=== PATIENT | male | born 1950 | race Caucasian/White ===

== ENCOUNTER → 2023-07-09 07:53 | Outpatient (REF) | payer MEDICARE, OTHER, SELFPAY ==
[2023-07-09 08:53] LABS: NT-proBNP 1210 pg/ml
[2023-07-09 08:56] LABS: Glycohemoglobin (HgbA1c) 9.1 % (4.0-5.6)
[2023-07-09 09:01] LABS: ALT (SGPT) 20 U/L (0-50); AST (SGOT) 20 U/L (17-59); Albumin 3.7 g/dl (3.5-5.0); Alkaline Phosphatase 58 U/L (38-126); Blood Urea Nitrogen 48 mg/dl (9-20); Calcium 8.8 mg/dl (8.4-10.2); Carbon Dioxide 20 mmol/L (22-30); Chloride 101 mmol/L (98-107); Glucose 168 mg/dl (70-99); HDL Cholesterol 31 mg/dl; LDL Cholesterol, Calculated 31 mg/dl; Sodium 136 mmol/L (135-145); Total Bilirubin 0.8 mg/dl (0.2-1.3); Total Cholesterol 95 mg/dl (50-199); Total Protein 6.4 g/dl (6.3-8.2); Triglyceride 169 mg/dl (10-149); Very Low Density Lipoprotein 33 mg/dl (0-30); eGFR 45.21
[2023-07-09 10:31] LABS: Microalbumin/creatinine Ratio 30.3 mg/g
== END ==
LOC: REG 07:53
PROVIDERS: ATTENDING PHYSICIAN Nurse Practitioner Family; FAMILY PHYSICIAN Internal Medicine; REFERRING PHYSICIAN Internal Medicine Cardiovascular Disease
DX: E11.9 Type 2 diabetes mellitus without complications (principal); I50.20 Unspecified systolic (congestive) heart failure; I10 Essential (primary) hypertension
CPT/HCPCS: 36415; 80053; 80061; 82043; 82570; 83036; 83735; 83880

== ENCOUNTER 2023-10-07 06:01 | Day surgery (SDC) | payer MEDICARE, OTHER, SELFPAY ==
[2023-09-28 08:28] VITALS: BMI 35.6
[2023-10-07] VITALS (8 sets, daily range): BP systolic 101–138; BP diastolic 58–77; BMI 35.6
[2023-10-07] MEDS: NORMOSOL-R 1000 IV (06:20)
[2023-10-07 06:30] LABS: Glucose - Point of Care 114 mg/dl (70-99)
[2023-10-07] MEDS: CYSVIEW KIT 100 MG INTRAVES (06:34)
[2023-10-07 08:11] LABS: Urine Albumin Negative (Neg - Trace); Urine Bilirubin Negative (Negative); Urine Character Clear (Clear); Urine Color Yellow; Urine Glucose Negative (Negative); Urine Ketone Negative (Negative); Urine Leukocyte Trace (Negative); Urine Nitrite Negative (Negative); Urine Occult Blood Negative (Negative); Urine Urobilinogen Negative (Neg - 1+)
[2023-10-07 08:27] LABS: Urine Red Blood Cell 0-2 /HPF (0-2); Urine White Cell 0-2 /HPF (0-5)
--- NOTE | 2023-10-07 08:40 | SUR.PHASEI ---
Received pt from OR and hooked to monitor, and rhythm showing A-FIB. Dr. Mcdaniels made aware and at bedside, pt more awake and states he has a hx of Afib. No chest pain. No SOB. No EKG ordered. Will continue to monitor
[2023-10-07 08:47] LABS: Glucose - Point of Care 103 mg/dl (70-99)
[2023-10-07] MEDS: Pyridium 200 MG PO (09:16)
== END 2023-10-07 10:23 | disposition home or self-care (01) ==
LOC: SDS 06:01
PROVIDERS: ATTENDING PHYSICIAN Specialist; FAMILY PHYSICIAN Internal Medicine
DX: N30.90 Cystitis, unspecified without hematuria (principal)
CPT/HCPCS: 52204; 88305; 74420; 76000; 81003; 81015; 82962; 88341; 88342; A9589

== ENCOUNTER → 2023-12-02 13:58 | Outpatient (REF) | payer MEDICARE, OTHER, SELFPAY | LOC: RCS 13:58 | PROVIDERS: ATTENDING PHYSICIAN Internal Medicine Cardiovascular Disease; FAMILY PHYSICIAN Internal Medicine | DX: I50.20 Unspecified systolic (congestive) heart failure (principal); I10 Essential (primary) hypertension; I48.0 Paroxysmal atrial fibrillation | CPT/HCPCS: 93306 ==

== ENCOUNTER → 2024-01-04 09:50 | Outpatient (REF) | payer MEDICARE, OTHER, SELFPAY | LOC: RAD 09:50 | PROVIDERS: ATTENDING PHYSICIAN Surgery Vascular Surgery; FAMILY PHYSICIAN Internal Medicine | DX: I73.9 Peripheral vascular disease, unspecified (principal) | CPT/HCPCS: 76770; 93922; 93925 ==

== ENCOUNTER 2024-01-14 12:02 | Emergency (ER) | payer MEDICARE, OTHER, SELFPAY ==
[2024-01-14 12:05] VITALS: BP 117/56
[2024-01-14 14:20] LABS: % Basophils 0.4 % (0-2); % Eosinophils 1.4 % (0-6); % Immature Granulocytes 0.5 % (0-0.5); % Lymphocytes 17.7 % (20.5-51.1); % Monocytes 10.9 % (1.7-9.3); % Neutrophils 69.1 % (42.2-75.2); Absolute Eosinophils 0.1 10^3/uL (0-0.7); Absolute Immature Granulocytes 0.1 10^3/uL (0-0.05); Absolute Lymphocytes 1.7 10^3/uL (1.2-3.4); Absolute Neutrophils 6.5 10^3/uL (1.4-6.5); Hematocrit 45.4 % (39.0-52.0); Hemoglobin 15.6 g/dL (13.0-18.0); Mean Corp Hgb Conc. 34.4 g/dL (33.0-37.0); Mean Corpuscular Hgb 31.5 pg (27.0-31.0); Mean Corpuscular Volume 91.7 fL (80.0-94.0); Nucleated Red Blood Cells % 0 % (-); Platelet Count 192 10^3/uL (130-400); Red Blood Cell Count 4.95 10^6/uL (4.70-6.10); Red Cell Dist. Width 14.4 % (11.5-14.5); White Blood Cell Count 9.4 10^3/uL (4.8-10.8)
--- NOTE | 2024-01-14 15:03 | ED.GENMED ---
History of Present Illness
General
Chief Complaint: Skin Problem
Time Seen by Provider: 01/14/24 13:26
History of Present Illness
History of Present Illness:
74 old male with history of lower extremity peripheral arterial disease presents the emergency department for evaluation of worsening left foot pain over the past 2 weeks. He was seen by his vascular surgeon at the onset of the symptoms and had a
outpatient extremity arterial ultrasound that showed a patent left to right femoral artery bypass with no evidence of stenosis, as well as bilateral inflow disease in both lower extremities and a left popliteal artery occlusion. He was reportedly
ordered to obtain an outpatient CT angiogram of the lower extremities in anticipation of an upcoming appointment in early February. Reports his pain with ambulation is worsening and he is having increased pain at rest. Denies any paresthesias to
the foot. No fevers or chills
Past History
Past History
ED Past Medical History: Asthma, Cancer (Liver cancer), HTN and NIDDM
ED Past Surgical History: Appendectomy, Cholecystectomy, Orthopedic and Other (Liver transplant)
Social History
Tobacco: Former smoker
Alcohol: None
Drug: None
Personal:
Living: with family
Employment: Retired
Family History
Family History: Hypertension
Review of Systems
Review of Systems
Allergies reviewed?: Yes
All Other Systems: ROS reviewed and negative except as documented in HPI and ROS
Phy Exam
Physical Exam
Physical Exam:
GEN: Well appearing, NAD, WDWN
HEENT: Oral mucosa moist, no scleral icterus
Cardiac: Regular rate
Lung: No respiratory distress, no tachypnea
MSK: No gross deformity or injuries. Diffuse edema to bilateral lower extremities, no overt erythema to the left foot or lower extremity. Left dorsalis pedis pulse is faint and monophasic by Doppler and left posterior tibial pulses faint and
biphasic by Doppler, sensation is intact
Skin: Good color, no pallor or jaundice, no rashes
Neuro: AO x3, moves all extremities freely
Psych: Calm, cooperative
Course
Orders/Labs/Results
Orders:
Orders
01/14/24 14:16
Complete Blood Count/With Diff Urgent
01/14/24 14:39
CT Abd Aorta Angio W/ Run Off Urgent
Comment:
Reason For Exam: L foot pain, PAD
01/14/24 16:43
Basic Metabolic Panel Urgent
Abnormal Lab Results
01/14/24 01/14/24
14:16 16:43
MCH 31.5 H pg
(27.0-31.0)
Abs Immat Gran (auto) 0.1 H 10^3/uL
(0-0.05)
Absolute Monos (auto) 1.0 H 10^3/uL
(0.1-0.6)
Lymphocytes % 17.7 L %
(20.5-51.1)
Monocytes % 10.9 H %
(1.7-9.3)
BUN 45 H mg/dl
(9-20)
Creatinine 1.4 H mg/dL
(0.7-1.3)
Glucose 124 H mg/dl
(70-99)
01/14/24 14:16
01/14/24 16:43
Vital Signs
Initial and Last Documented VS:
Initial Vital Signs
Temp Pulse Resp BP Pulse Ox
97.9 F 71 16 117/56 97
01/14/24 12:05 01/14/24 12:05 01/14/24 12:05 01/14/24 12:05 01/14/24 12:05
Last Documented Vital Signs
Temp Pulse Resp BP Pulse Ox
97.9 F 75 16 115/60 98
01/14/24 12:05 01/14/24 16:00 01/14/24 12:05 01/14/24 16:00 01/14/24 16:00
MDM/Problems Addressed
MDM/Problems Addressed:
74-year-old male presents with worsening left foot pain. His pain sounds clinically suggestive of neuropathy given the burning discomfort especially worse with ambulating. CT angiography of the aorta with runoff shows no evidence for new vascular
occlusions. There are no skin changes to suggest acute infection and pulses are dopplerable at this time. Given that I do not see any evidence for infection and vascular studies were reassuring will treat with Neurontin for presumed diabetic
neuropathy and have him follow-up with podiatry and primary care as an outpatient as well as vascular surgery
*Critical Care Note
Total Time (30-74mins, 75-104mins- exclusive of procedures): Not Applicable
ED Attending Note
-
Portions of this chart may have been created with voice recognition software.� Occasional wrong word or��sound alike� substitutions may have occurred due to the inherent limitations of voice recognition software.
Discharge Plan
Departure
Patient Disposition: Home (Routine Discharge)
Date of Disposition: 01/14/24
Time of Disposition: 17:49
Patient with high blood pressure during this ER visit?: No
Discharge Problem:
Acute pain of left foot
Instructions: Peripheral Neuropathy (DC)
Prescriptions:
New
gabapentin 300 mg capsule
300 mg PO TID Qty: 30 0RF
No Action
tacrolimus 1 MG capsule
2 mg PO DAILY
magnesium oxide 250 MG tablet
250 mg PO DAILY
rosuvastatin 20 MG tablet
20 mg PO QPM
aspirin 81 MG tablet,delayed release (DR/EC)
81 mg PO DAILY
spironolactone 25 mg Tablet
12.5 mg PO DAILY
tacrolimus 1 mg Capsule
1 mg PO QPM
Jardiance 25 mg Tablet
25 mg PO DAILY
Mounjaro 7.5 mg/0.5 mL Pen Injector
7.5 mg SC MO
tamsulosin 0.4 mg capsule
0.4 mg PO BID
insulin aspart U-100 [Novolog FlexPen U-100 Insulin] 100 unit/mL (3 mL) Insulin Pen
20 unit SC DAILY
furosemide 80 mg Tablet
80 mg PO BID
carvedilol
PO DAILY
Referrals:
Peter Coy DO [Family Provider] -
Interventions
Interventions:
*Risk Screen - Suicide Last Done: 01/14/24 12:05
*General Assessment Last Done: 01/14/24 12:05
*Neglect/Abuse Screening Last Done: 01/14/24 12:05
ED- Fall Risk Assessment Last Done: 01/14/24 18:08
*ED COVID-19 Vaccine History Last Done: 01/14/24 18:08
*Nursing Disposition Last Done: 01/14/24 18:08
ED-Skin Assessment Last Done: 01/14/24 13:49
Discharge Date and Time
Discharge Date/Time: 01/14/24 18:09
Print Language: [place]AST [place]
[2024-01-14 15:38] VITALS: BP 109/59
[2024-01-14 16:00] VITALS: BP 115/60
[2024-01-14 17:18] LABS: Blood Urea Nitrogen 45 mg/dl (9-20); Calcium 8.5 mg/dl (8.4-10.2); Carbon Dioxide 22 mmol/L (22-30); Chloride 105 mmol/L (98-107); Glucose 124 mg/dl (70-99); Sodium 137 mmol/L (135-145); eGFR 52.74
== END 2024-01-14 18:09 | disposition home or self-care (01) ==
LOC: EMR 12:02
PROVIDERS: Physician Assistant; EMERGENCY PHYSICIAN Emergency Medicine; FAMILY PHYSICIAN Internal Medicine
DX: M79.672 Pain in left foot (principal); R60.0 Localized edema; I73.9 Peripheral vascular disease, unspecified; J45.909 Unspecified asthma, uncomplicated; I10 Essential (primary) hypertension; E11.51 Type 2 diabetes mellitus with diabetic peripheral angiopathy without gangrene; Z85.05 Personal history of malignant neoplasm of liver; Z87.891 Personal history of nicotine dependence; Z94.4 Liver transplant status; Z90.49 Acquired absence of other specified parts of digestive tract; Z79.82 Long term (current) use of aspirin; Z88.5 Allergy status to narcotic agent; Z88.8 Allergy status to other drugs, medicaments and biological substances
CPT/HCPCS: 99285; 75635; 80048; 85025; Q9967

== ENCOUNTER 2024-01-28 07:36 | Outpatient (RCR) | payer MEDICARE, OTHER, SELFPAY ==
[2024-01-28 07:45] VITALS: BP 107/48
[2024-01-28] MEDS: SODIUM BICARBONATE 1150 MEQ IV (08:14)
--- NOTE | 2024-01-28 10:17 | PTCARENOTE ---
pt sent down for ct scan abd as ordered, according to staff in Ct scan, pt had ct scan completed on 01/14/24 when he was in the hospital. will d/c patient home when he returns to unit.
== END 2024-01-31 08:18 | disposition home or self-care (01) ==
LOC: OID 07:36
PROVIDERS: ATTENDING PHYSICIAN Surgery Vascular Surgery
DX: I71.40 Abdominal aortic aneurysm, without rupture, unspecified (principal); I73.9 Peripheral vascular disease, unspecified; Z92.89 Personal history of other medical treatment
CPT/HCPCS: 96360

== ENCOUNTER → 2024-02-25 14:50 | Outpatient (REF) | payer MEDICARE, OTHER, SELFPAY | LOC: RAD 14:50 | PROVIDERS: ATTENDING PHYSICIAN Nurse Practitioner Family; FAMILY PHYSICIAN Internal Medicine | DX: M79.671 Pain in right foot (principal); M79.672 Pain in left foot | CPT/HCPCS: 73630 ==

== ENCOUNTER → 2024-03-17 07:27 | Outpatient (REF) | payer MEDICARE, OTHER, SELFPAY ==
[2024-03-17 09:52] LABS: Glycohemoglobin (HgbA1c) 7.5 % (4.0-5.6)
[2024-03-17 10:22] LABS: ALT (SGPT) 28 U/L (0-50); AST (SGOT) 26 U/L (17-59); Albumin 4.5 g/dl (3.5-5.0); Alkaline Phosphatase 51 U/L (38-126); Blood Urea Nitrogen 55 mg/dl (9-20); Calcium 9.3 mg/dl (8.4-10.2); Carbon Dioxide 26 mmol/L (22-30); Chloride 101 mmol/L (98-107); Glucose 121 mg/dl (70-99); HDL Cholesterol 40 mg/dl; LDL Cholesterol, Calculated 30 mg/dl; Potassium 5.2 mmol/L (3.5-5.1); Sodium 142 mmol/L (135-145); Total Bilirubin 0.5 mg/dl (0.2-1.3); Total Cholesterol 109 mg/dl (50-199); Total Protein 7.1 g/dl (6.3-8.2); Triglyceride 195 mg/dl (10-149); Very Low Density Lipoprotein 39 mg/dl (0-30); eGFR 39.01
[2024-03-17 15:09] LABS: Microalbumin, Random Urine < 0.6 mg/dl (0.6-1.7)
== END ==
LOC: REG 07:27
PROVIDERS: ATTENDING PHYSICIAN Internal Medicine Endocrinology, Diabetes & Metabolism; FAMILY PHYSICIAN Internal Medicine
DX: E11.9 Type 2 diabetes mellitus without complications (principal)
CPT/HCPCS: 36415; 80053; 80061; 82043; 82570; 83036

== ENCOUNTER 2024-04-06 05:56 | Day surgery (SDC) | payer MEDICARE, OTHER, SELFPAY ==
[2024-03-22 10:47] VITALS: BMI 32.4
[2024-04-06] VITALS (9 sets, daily range): BP systolic 98–128; BP diastolic 56–89; BMI 33.9
[2024-04-06 06:52] LABS: Glucose - Point of Care 207 mg/dl (70-99)
[2024-04-06] MEDS: FLOMAX 0.4 MG PO (07:40)
[2024-04-06 08:55] LABS: ACT-LR - POC 366 Seconds (116-155)
[2024-04-06 09:14] LABS: ACT-LR - POC 377 Seconds (116-155)
[2024-04-06 10:20] LABS: Glucose - Point of Care 176 mg/dl (70-99)
--- NOTE | 2024-04-06 10:20 | ITS.CL.ABL ---
Gas Desulfurizer - Ablation
Ablation
Procedure Report:
ELECTROPHYSIOLOGIC STUDY AND POSSIBLE ABLATION
DATE: April 06, 2024
Primary Care Provider: Dr Peter Coy
Primary [place] Administrator: Dr. Devan Lara
INDICATION:
Symptomatic Atrial Fibrillation.
Persistent
HISTORY: See H and P.
Symptomatic AF, poorly controlled with attempted medical therapy
HAS-BLED: 2
Age
Abnormal Renal Function
CHADSVASc: 5
HFpEF
Age
DM
CAD and PAD
PRESENTING RHYTHM: AF
HISTORY: See H and P.
Symptomatic AF, poorly controlled with attempted medical therapy.
He is initially referred from Dr. Devan Lara regarding symptomatic persistent atrial fibrillation which has been associated with heart failure with preserved/mildly reduced ejection fraction.
Medical history includes symptomatic persistent atrial fibrillation, coronary artery disease with prior PCI (LAD stent, RCA and OM 2 stents May 2021), peripheral arterial disease, heart failure with preserved ejection fraction, liver
transplantation, history of hemochromatosis, diabetes mellitus, peripheral arterial disease.
ANTICOAGULATION: Eliquis 5 mg twice daily
'TIME-OUT': called and confirmed.
SEDATION/ANESTHESIA: provided via the anesthesia department using general anesthesia.
PROCEDURE:
Ultrasound Guidance performed by or was utilized for femoral venous Vascular Access b/l.
A decapolar CS catheter was placed within the CS for mapping and pacing.
The intracardiac ultrasound catheter was positioned in the RA for continuous intracardiac ultrasound imaging.
Heparin bolus and infusion to target ACT at 300 -350 seconds was administered. Transseptal puncture was performed. This entailed advancing a sheath with dilator into the superior vena cava and withdrawing both (monitoring intracardiac ultrasound,
fluoroscopy and tip pressure) with the tip oriented toward the atrial septum. The fossa ovalis was engaged (indicated by sudden displacement of the sheath tip as well as tenting of the fossa seen on intracardiac ultrasound).
AcALKALINE WATER transseptal system was used. Left atrial catheter position was confirmed by echocardiographic imaging, pressure monitoring (LA mean pressure 15 mm Hg) and fluoroscopy. The sheath was advanced over the dilator and positioned in the left
atrium.
The multipolar mapping catheter was initially positioned through the transseptal sheath for high density mapping.
Cardioversion restored sinus rhythm.
Geometry and voltage mapping was performed using the Benjamin multipolar grid catheter. Ensite-X was utilized for three-dimensional electroanatomical mapping.
A 3-D map was created using Ensite-X in Voxel mode. A 3-D reconstructed CT image was compared to the 3-D Navex map to assist in anatomic evaluation, mapping and ablation.
The Your Style Unzipped Pulse Select PFA catheter and system was used for cardiac ablation. Catheter positioning was guided and confirmed using both I.C.E. and fluoroscopy.
PV isolation approach was used to electrically isolate each PV ostia (LSPV, LIPV, RSPV, RIPV).
Additional energy applications/additional ablation set was required to accomplish wide area circumferential ablation around each of the pulmonary vein sets and additionally ablation to accomplish LA posterior wall ablation.
Remapping with the Benjamin multipolar grid catheter found that all PVPs were eliminated at each vein demonstrating entrance block. Also pacing from the multipolar mapping catheter around the the circumference of the ostia was performed at 10 ma and
2.0 msec output to assess for exit block. This demonstrated electrical isolation at each of the pulmonary vein ostia (LSPV, LIPV, RSPV, RIPV). There is also entrance and exit block at the LA posterior wall.
Programmed electrostimulation failed to induce any sustained arrhythmias.
I.C.E. :
Pre-Ablation Post-Ablation
LVEF: 45-50 % 45- 50 %
WMA: none none
Pericardial effusion: trace posterior trace posterior
COMPLICATIONS:
NOne
SUMMARY:
- Mapping and ablation to isolate the PVs
- Additional AF ablation set after PVI.
- 3-D Electroanatomical Mapping
- Intracardiac Ultrasound
Post ablation, I discussed today's findings and results with the patient's , Heydi
RECOMMENDATIONS:
- Observe in monitored bed.
- Maintain oral anticoagulation.
- Maintain GDMT for HFmrEF
- Continue cardiovascular care with Dr Lara
Copy to:
Dr Peter Coy
Dr. Devan Lara
[2024-04-06] MEDS: ANESTHETIC LOZENGE 1 LOZENGE PO (11:17)
--- NOTE | 2024-04-06 12:37 | W.PN.UPDATE ---
Update Note
Progress Note Update
74 yo WM s/p PVI (same day). He denies cp, sob, melvin diet, voiding, amb w/o dizziness, sore throat, EKG SR 1deg AVB, occ PVC's, R fem site VASCADE c/d/i no HT soft. He will continue OAC Eliquis at home tonight. Activity restrictions reviewed. He will
f/u Dr. Lara in 3 mo. He is for d/c home after 1230p.
== END 2024-04-06 12:30 | disposition home or self-care (01) ==
LOC: CATH 05:56
PROVIDERS: ATTENDING PHYSICIAN Internal Medicine Cardiovascular Disease; OTHER PHYSICIAN Internal Medicine Cardiovascular Disease
DX: I48.19 Other persistent atrial fibrillation (principal); R06.02 Shortness of breath; R42 Dizziness and giddiness; I25.10 Atherosclerotic heart disease of native coronary artery without angina pectoris; Z95.5 Presence of coronary angioplasty implant and graft; I50.32 Chronic diastolic (congestive) heart failure; I13.0 Hypertensive heart and chronic kidney disease with heart failure and stage 1 through stage 4 chronic kidney disease, or unspecified chronic kidney disease; Z79.899 Other long term (current) drug therapy; I49.3 Ventricular premature depolarization; I47.20 Ventricular tachycardia, unspecified; E78.5 Hyperlipidemia, unspecified; E66.9 Obesity, unspecified; Z68.32 Body mass index [BMI] 32.0-32.9, adult; E11.51 Type 2 diabetes mellitus with diabetic peripheral angiopathy without gangrene; Z79.4 Long term (current) use of insulin; Z79.85 Long-term (current) use of injectable non-insulin antidiabetic drugs; E11.22 Type 2 diabetes mellitus with diabetic chronic kidney disease; I71.40 Abdominal aortic aneurysm, without rupture, unspecified; E83.119 Hemochromatosis, unspecified; Z87.891 Personal history of nicotine dependence; N40.0 Benign prostatic hyperplasia without lower urinary tract symptoms; M19.90 Unspecified osteoarthritis, unspecified site; Z79.01 Long term (current) use of anticoagulants; Z79.621 Long term (current) use of calcineurin inhibitor; Z88.5 Allergy status to narcotic agent; Z92.21 Personal history of antineoplastic chemotherapy; Z85.51 Personal history of malignant neoplasm of bladder; D84.821 Immunodeficiency due to drugs; N18.30 Chronic kidney disease, stage 3 unspecified; Z90.49 Acquired absence of other specified parts of digestive tract; T86.42 Liver transplant failure
CPT/HCPCS: C1894; C1769; C1730; C1892; C1733; C1759; 82962; 85347; 93005; 93656; 93657; C1732; C1760; C1766

== ENCOUNTER → 2024-05-12 09:44 | Outpatient (REF) | payer MEDICARE, OTHER, SELFPAY | LOC: CLAB 09:44 | PROVIDERS: ATTENDING PHYSICIAN Specialist | DX: C67.2 Malignant neoplasm of lateral wall of bladder (principal) | CPT/HCPCS: 88112 ==

== ENCOUNTER → 2024-06-02 11:08 | Outpatient (REF) | payer MEDICARE, OTHER, SELFPAY | LOC: RAD 11:08 | PROVIDERS: ATTENDING PHYSICIAN Nurse Practitioner Family; FAMILY PHYSICIAN Internal Medicine | DX: R06.89 Other abnormalities of breathing (principal) | CPT/HCPCS: 71046 ==

== ENCOUNTER → 2024-08-21 13:18 | Outpatient (REF) | payer MEDICARE, OTHER, SELFPAY | LOC: DHVS 13:18 | PROVIDERS: ATTENDING PHYSICIAN Surgery Vascular Surgery; FAMILY PHYSICIAN Internal Medicine | DX: I73.9 Peripheral vascular disease, unspecified (principal) | CPT/HCPCS: 93922; 93926 ==

== ENCOUNTER 2024-08-25 06:40 | Day surgery (SDC) | payer MEDICARE, OTHER, SELFPAY ==
[2024-08-25 07:14] VITALS: BMI 31.4
[2024-08-25] MEDS: ELIQUIS 5 MG PO (07:20)
== END 2024-08-25 10:24 ==
LOC: CATH 06:40
PROVIDERS: ATTENDING PHYSICIAN Nuclear Medicine Nuclear Cardiology; FAMILY PHYSICIAN Internal Medicine; OTHER PHYSICIAN Internal Medicine Cardiovascular Disease
DX: I48.19 Other persistent atrial fibrillation (principal); I08.1 Rheumatic disorders of both mitral and tricuspid valves; I11.0 Hypertensive heart disease with heart failure; I50.22 Chronic systolic (congestive) heart failure; I25.10 Atherosclerotic heart disease of native coronary artery without angina pectoris; E78.00 Pure hypercholesterolemia, unspecified; E11.9 Type 2 diabetes mellitus without complications; G47.33 Obstructive sleep apnea (adult) (pediatric); Z95.5 Presence of coronary angioplasty implant and graft; Z85.51 Personal history of malignant neoplasm of bladder; Z87.891 Personal history of nicotine dependence; Z79.84 Long term (current) use of oral hypoglycemic drugs; Z79.4 Long term (current) use of insulin; Z79.85 Long-term (current) use of injectable non-insulin antidiabetic drugs; Z79.01 Long term (current) use of anticoagulants
CPT/HCPCS: 93312; 93320; 93325

== ENCOUNTER → 2024-09-11 07:33 | Outpatient (REF) | payer MEDICARE, OTHER, SELFPAY ==
[2024-09-11 08:58] LABS: ALT (SGPT) 16 U/L (0-50); AST (SGOT) 19 U/L (17-59); Albumin 4.4 g/dl (3.5-5.0); Alkaline Phosphatase 57 U/L (38-126); Blood Urea Nitrogen 46 mg/dl (9-20); Calcium 9.3 mg/dl (8.4-10.2); Carbon Dioxide 24 mmol/L (22-30); Chloride 106 mmol/L (98-107); Glucose 161 mg/dl (70-99); HDL Cholesterol 47 mg/dl; LDL Cholesterol, Calculated 47 mg/dl; Potassium 5.3 mmol/L (3.5-5.1); Sodium 141 mmol/L (135-145); Total Bilirubin 0.8 mg/dl (0.2-1.3); Total Cholesterol 129 mg/dl (50-199); Total Protein 6.9 g/dl (6.3-8.2); Triglyceride 179 mg/dl (10-149); Very Low Density Lipoprotein 35 mg/dl (0-30); eGFR 44.93
[2024-09-11 09:20] LABS: TSH Reflex To Free T4 2.24 uIU/ml (0.47-4.68)
[2024-09-12 21:26] LABS: Tacrolimus (Prograft - FK506) 6.9 ng/mL
== END ==
LOC: REG 07:33
PROVIDERS: ATTENDING PHYSICIAN Physician Assistant; FAMILY PHYSICIAN Internal Medicine
DX: I73.9 Peripheral vascular disease, unspecified (principal); Z94.9 Transplanted organ and tissue status, unspecified; I10 Essential (primary) hypertension; I48.91 Unspecified atrial fibrillation
CPT/HCPCS: 36415; 80053; 80061; 80197; 84443

== ENCOUNTER → 2024-10-06 08:13 | Outpatient (REF) | payer MEDICARE, OTHER, SELFPAY ==
[2024-10-06 10:21] LABS: Glycohemoglobin (HgbA1c) 8.5 % (4.0-5.6)
[2024-10-06 11:37] LABS: Microalbumin, Random Urine <0.6 mg/dl (0.6-1.7)
[2024-10-06 15:08] LABS: ALT (SGPT) 25 U/L (0-50); AST (SGOT) 22 U/L (17-59); Albumin 4.7 g/dl (3.5-5.0); Alkaline Phosphatase 53 U/L (38-126); Blood Urea Nitrogen 43 mg/dl (9-20); Calcium 9.6 mg/dl (8.4-10.2); Carbon Dioxide 24 mmol/L (22-30); Chloride 105 mmol/L (98-107); Glucose 153 mg/dl (70-99); HDL Cholesterol 58 mg/dl; LDL Cholesterol, Calculated 51 mg/dl; Potassium 4.6 mmol/L (3.5-5.1); Sodium 146 mmol/L (135-145); Total Bilirubin 0.7 mg/dl (0.2-1.3); Total Cholesterol 129 mg/dl (50-199); Total Protein 7.6 g/dl (6.3-8.2); Triglyceride 100 mg/dl (10-149); Very Low Density Lipoprotein 20 mg/dl (0-30); eGFR 30.66
== END ==
LOC: REG 08:13
PROVIDERS: ATTENDING PHYSICIAN Internal Medicine Endocrinology, Diabetes & Metabolism
DX: E11.9 Type 2 diabetes mellitus without complications (principal)
CPT/HCPCS: 36415; 80053; 80061; 82043; 82570; 83036

== ENCOUNTER → 2024-10-09 09:04 | Outpatient (REF) | payer MEDICARE, OTHER, SELFPAY ==
[2024-10-09 10:19] LABS: % Basophils 0.5 % (0-2); % Eosinophils 2.6 % (0-6); % Immature Granulocytes 0.5 % (0-0.5); % Lymphocytes 25.5 % (20.5-51.1); % Monocytes 9.4 % (1.7-9.3); % Neutrophils 61.5 % (42.2-75.2); Absolute Eosinophils 0.2 10^3/uL (0-0.7); Absolute Lymphocytes 1.7 10^3/uL (1.2-3.4); Absolute Monocytes 0.6 10^3/uL (0.1-0.6); Hematocrit 46.5 % (39.0-52.0); Hemoglobin 15.3 g/dL (13.0-18.0); Mean Corp Hgb Conc. 32.9 g/dL (33.0-37.0); Mean Corpuscular Hgb 32.1 pg (27.0-31.0); Mean Corpuscular Volume 97.7 fL (80.0-94.0); Mean Platelet Volume 10.4 fL (7.4-10.4); Nucleated Red Blood Cells % 0 % (-); Platelet Count 203 10^3/uL (130-400); Red Blood Cell Count 4.76 10^6/uL (4.70-6.10); Red Cell Dist. Width 14.1 % (11.5-14.5); White Blood Cell Count 6.5 10^3/uL (4.8-10.8)
[2024-10-09 10:33] LABS: INR 1.41; PT 17.5 Sec (11.4-14.6)
[2024-10-09 10:38] LABS: ALT (SGPT) 20 U/L (0-50); AST (SGOT) 21 U/L (17-59); Albumin 4.7 g/dl (3.5-5.0); Alkaline Phosphatase 53 U/L (38-126); Blood Urea Nitrogen 42 mg/dl (9-20); Calcium 8.8 mg/dl (8.4-10.2); Carbon Dioxide 26 mmol/L (22-30); Chloride 100 mmol/L (98-107); Glucose 157 mg/dl (70-99); Magnesium 2.1 mg/dl (1.6-2.3); Potassium 4.8 mmol/L (3.5-5.1); Sodium 140 mmol/L (135-145); Total Bilirubin 0.9 mg/dl (0.2-1.3); Total Protein 7.1 g/dl (6.3-8.2); eGFR 34.38
== END ==
LOC: SDSPAT 09:04
PROVIDERS: ATTENDING PHYSICIAN Internal Medicine Cardiovascular Disease; FAMILY PHYSICIAN Internal Medicine; OTHER PHYSICIAN Internal Medicine Cardiovascular Disease
DX: I48.0 Paroxysmal atrial fibrillation (principal)
CPT/HCPCS: 36415; 80053; 83735; 85025; 85610; 86850; 86900; 86901; 93005

== ENCOUNTER → 2024-10-11 12:51 | Outpatient (REF) | payer MEDICARE, OTHER, SELFPAY | LOC: PAVMRI 12:51 | PROVIDERS: ATTENDING PHYSICIAN Internal Medicine Cardiovascular Disease; FAMILY PHYSICIAN Internal Medicine | DX: Z94.4 Liver transplant status (principal); I10 Essential (primary) hypertension; I48.91 Unspecified atrial fibrillation | CPT/HCPCS: 74183; A9581 ==

== ENCOUNTER → 2024-10-27 10:08 | Outpatient (REF) | payer MEDICARE, OTHER, SELFPAY ==
[2024-10-27 11:38] LABS: PSA, Total - Screen 2.54 ng/ml (0.0-4.0)
== END ==
LOC: REG 10:08
PROVIDERS: ATTENDING PHYSICIAN Specialist; FAMILY PHYSICIAN Internal Medicine
DX: Z12.5 Encounter for screening for malignant neoplasm of prostate (principal)
CPT/HCPCS: 36415; G0103

== ENCOUNTER 2024-11-01 07:17 | Day surgery (SDC) | payer MEDICARE, OTHER, SELFPAY ==
--- NOTE | 2024-10-09 09:44 | HPS.HSE ---
Family Physician
-
Family Physician: NO INTERVIEW UNKNOWN
Chief Complaint
-
Persistent atrial fibrillation.
History of Present Illness
The patient is a 74 year old male presenting today for persistent atrial fibrillation. The patient reports a history of dizziness, shortness of breath, palpitations, and fatigue all likely secondary to this diagnosis. His atrial
fibrillation has been previously associated with decompensated congestive heart failure. Fortunately, his ejection fraction was preserved on his most recent echocardiogram. His heart failure is managed with Spironolactone, Entresto, and Jardiance.
He is on current pharmacological therapy for his atrial fibrillation with Amiodarone. He does report recent compliance with Eliquis for oral anticoagulation. He did undergo pulmonary vein isolation with Dr. Ck Keys on April 06, 2024.
Sadly, his arrhythmia quickly returned soon after this procedure. He was set to undergo a cardioversion in August 2024 but this was held off due to dense spontaneous echo contrast with prethrombotic smoke seen at the time of his transesophageal
echocardiogram in his left atrial appendage. He reports that his shortness of breath and fatigue have improved since his ablation; however, he still continues with palpitations and mild dizziness. He would like to proceed with repeat pulmonary vein
isolation for further arrhythmia management. He will first undergo a pre-procedural transesophageal echocardiogram given his last AUDIE result. He denies any current complaints today such as chest pain, shortness of breath, nausea, vomiting, diarrhea,
lightheadedness, cough, sore throat, or fever.
Medical History
Past Medical History
Past Medical History: Reports Other
Additional Past Medical History:
1. Persistent atrial fibrillation, status post pulmonary vein isolation 04/06/2024; pharmacological therapy with Amiodarone and oral anticoagulation with Eliquis.
2. Nonsustained ventricular tachycardia.
3. Frequent PVCs.
4. Hypertension.
5. Hyperlipidemia.
6. Coronary artery disease, status post PCI with drug-eluting stent to mid circumflex, 2018, PCI with proximal stent to LAD, 2020, and PCI with drug-eluting stents to mid RCA and OM 2.
7. Congestive heart failure, preserved ejection fraction.
8. Peripheral arterial disease, status post fem-fem bypass less than 5 years ago.
9. Abdominal aortic aneurysm, status post stent graft.
10. Mild mitral regurgitation.
11. Mild tricuspid regurgitation.
12. Obstructive sleep apnea, non-compliant with device.
13. Chronic kidney disease, stage 3B.
14. Insulin dependent diabetes with neuropathy.
15. Hemochromatosis with resultant liver failure, status post remote liver transplant; on Tacrolimus.
16. Mild cognitive impairment.
17. Osteoarthritis, status post right total knee arthroplasty 2010.
18. Bladder cancer, diagnosed <5 years ago, status post TURBT, chemotherapy.
19. BPH.
20. Obesity, BMI 33.0.
21. Remote history of tobacco abuse.
Past Surgical History: Reports Other
Additional Past Surgical History:
1. Pulmonary vein isolation.
2. PCI with drug-eluting stent to circumflex.
3. PCI with stent to proximal LAD.
4. PCI with drug-eluting stent to mid RCA and OM2.
5. AAA stent.
6. Fem-fem bypass.
7. Transesophageal echocardiogram.
8. Liver transplant.
9. Cholecystectomy.
10. Appendectomy.
11. Left inguinal hernia repair.
12. Right total knee arthroplasty.
13. TURBT.
14. Multiple cystoscopies.
Social History
Tobacco: Former Smoker (He is a former 1 pack per day cigarette smoker who quit tobacco altogether in 1999. )
Alcohol: Occasional
Personal:
Living: Other (He lives with his spouse and daughter in a 2 story home. )
Family History
Family History: Not pertinent
Allergies / Home Medications
Allergy/Medication List:
Home medications:
1. Acetaminophen 1000 mg p.o. every 6 hours as needed.
2. Amiodarone 200 mg p.o. daily.
3. Eliquis 5 mg p.o. twice a day.
4. Entresto 24-26 mg p.o. twice a day.
5. Furosemide 80 mg p.o. daily.
6. Furosemide 40 mg p.o. every evening.
7. Gabapentin 400 mg p.o. three times a day.
8. Lantus 20 units subcutaneous every evening.
9. Novolin N 15 units subcutaneous twice a day.
10. Jardiance 25 mg p.o. daily.
11. Magnesium oxide 250 mg p.o. daily.
12. Mounjaro 7.5 mg subcutaneous on Sundays.
13. Nitroglycerin 0.4 mg sublingual every 5 minutes as needed (max 3 doses).
14. Rosuvastatin 20 mg p.o. daily.
15. Spironolactone 12.5 mg p.o. daily.
16. Tacrolimus 2 mg p.o. daily.
17. Tacrolimus 1 mg p.o. every evening.
18. Tamsulosin 0.4 mg p.o. twice a day.
Allergies: Oxycodone. Nexavar.
Review of Systems
-
A 12 point ROS was completed and negative except as noted: Yes
Physical Exam
Vital Signs
Blood pressure 117/69. Heart rate 74. Respirations 18. Pulse ox 98% on room air.
Height 5 feet, 9 inches, weight 101.5 kg, BMI 33.0.
Physical Exam
General: Well Developed, Well Nourished and No Apparent Distress
HEENT: NormoCephalic, Moist mucous membranes, Atraumatic and PERRLA
Respiratory: Clear
Cardiac: Irregular Rhythm
GI: Soft, Non Tender, Non Distended and Other (Obese. )
Musculoskeletal: Other (+1 non-pitting bilateral lower extremity edema. The patient ambulates with a single point cane. )
Skin: Warm and Dry
Neuro: AO x 3 (with baseline mild cognitive deficits noted. )
Laboratory Results
-
DIAGNOSTIC STUDIES as of 10/09/2024: White blood cell count 6.5. Hemoglobin 15.3. Platelet count 203,000. PT 17.5. INR 1.41. Sodium 140. Potassium 4.8. BUN 42. Creatinine 2.0. Glucose 157. Calcium 8.8. Magnesium 2.1. AST 21. ALT 20. Albumin 4.7.
Type and screen A positive.
EKG 10/09/2024: Atrial fibrillation with premature ventricular or aberrantly conducted complexes. Low voltage QRS. Cannot rule out anterior infarct, cited on or before 04/06/2024.
Transesophageal echocardiogram 08/25/2024: Normal left-ventricular chamber size myocardial thickness and systolic function. Left ventricular ejection fraction 55 to 60%. Significant spontaneous echo contrast and appearance of suspicious early
thrombus formation. Mild mitral regurgitation. At least mild tricuspid regurgitation. Previous echo from August 2021 showed November 2023 showed ejection fraction of 51% with mild pulmonic regurgitation. With left atrial appendage findings, cardioversion
was not performed.
Impression/Plan
-
IMPRESSION/PLAN:
1. Persistent atrial fibrillation: The patient is in need of pulmonary vein isolation. Prior to undergoing this, however, the patient will proceed with a transesophageal echocardiogram with Dr. Bonifacio Hooper on 11/01/2024. The benefits and risks of the
procedure have been explained to the patient. The patient understands these risks and wishes to proceed. He is aware to continue compliance with his Eliquis pre-operatively. He will hold his Mounjaro within a week of his procedure. His last dose of
Jardiance will be 10/29/2024.
== END 2024-11-01 10:34 | disposition home or self-care (01) ==
LOC: CATH 07:17
PROVIDERS: ATTENDING PHYSICIAN Nuclear Medicine Nuclear Cardiology; FAMILY PHYSICIAN Internal Medicine; OTHER PHYSICIAN Internal Medicine Cardiovascular Disease
DX: I48.19 Other persistent atrial fibrillation (principal); I13.0 Hypertensive heart and chronic kidney disease with heart failure and stage 1 through stage 4 chronic kidney disease, or unspecified chronic kidney disease; I50.32 Chronic diastolic (congestive) heart failure; N18.32 Chronic kidney disease, stage 3b; E11.22 Type 2 diabetes mellitus with diabetic chronic kidney disease; I47.20 Ventricular tachycardia, unspecified; E78.5 Hyperlipidemia, unspecified; I25.10 Atherosclerotic heart disease of native coronary artery without angina pectoris; Z95.5 Presence of coronary angioplasty implant and graft; I08.1 Rheumatic disorders of both mitral and tricuspid valves; G47.33 Obstructive sleep apnea (adult) (pediatric); Z85.51 Personal history of malignant neoplasm of bladder; N40.0 Benign prostatic hyperplasia without lower urinary tract symptoms; E66.9 Obesity, unspecified; Z68.33 Body mass index [BMI] 33.0-33.9, adult; M19.90 Unspecified osteoarthritis, unspecified site; Z87.891 Personal history of nicotine dependence; Z94.4 Liver transplant status; Z79.4 Long term (current) use of insulin; Z79.01 Long term (current) use of anticoagulants; Z79.84 Long term (current) use of oral hypoglycemic drugs; Z79.85 Long-term (current) use of injectable non-insulin antidiabetic drugs
CPT/HCPCS: 93312; 93320; 93325

== ENCOUNTER 2024-11-03 07:39 | Day surgery (SDC) | payer MEDICARE, OTHER, SELFPAY ==
[2024-10-09 13:17] VITALS: BMI 33.1
--- NOTE | 2024-10-10 09:00 | HPS.HSE ---
Family Physician
-
Family Physician: NO INTERVIEW UNKNOWN
Chief Complaint
-
Persistent atrial fibrillation.
History of Present Illness
The patient is a 74 year old male presenting today for persistent atrial fibrillation. The patient reports a history of dizziness, shortness of breath, palpitations, and fatigue all likely secondary to this diagnosis. His atrial
fibrillation has been previously associated with decompensated congestive heart failure. Fortunately, his ejection fraction was preserved on his most recent echocardiogram. His heart failure is managed with Spironolactone, Entresto, and Jardiance.
He is on current pharmacological therapy for his atrial fibrillation with Amiodarone. He does report recent compliance with Eliquis for oral anticoagulation. He did undergo pulmonary vein isolation with Dr. Ck Keys on April 06, 2024.
Sadly, his arrhythmia quickly returned soon after this procedure. He was set to undergo a cardioversion in August 2024 but this was held off due to dense spontaneous echo contrast with prethrombotic smoke seen at the time of his transesophageal
echocardiogram in his left atrial appendage. He reports that his shortness of breath and fatigue have improved since his ablation; however, he still continues with palpitations and mild dizziness. He would like to proceed with repeat pulmonary vein
isolation for further arrhythmia management. He denies any current complaints today such as chest pain, shortness of breath, nausea, vomiting, diarrhea, lightheadedness, cough, sore throat, or fever.
Medical History
Past Medical History
Past Medical History: Reports Other
Additional Past Medical History:
1. Persistent atrial fibrillation, status post pulmonary vein isolation 04/06/2024; pharmacological therapy with Amiodarone and oral anticoagulation with Eliquis.
2. Nonsustained ventricular tachycardia.
3. Frequent PVCs.
4. Hypertension.
5. Hyperlipidemia.
6. Coronary artery disease, status post PCI with drug-eluting stent to mid circumflex, 2018, PCI with proximal stent to LAD, 2020, and PCI with drug-eluting stents to mid RCA and OM 2.
7. Congestive heart failure, preserved ejection fraction.
8. Peripheral arterial disease, status post fem-fem bypass less than 5 years ago.
9. Abdominal aortic aneurysm, status post stent graft.
10. Mild mitral regurgitation.
11. Mild tricuspid regurgitation.
12. Obstructive sleep apnea, non-compliant with device.
13. Chronic kidney disease, stage 3B.
14. Insulin dependent diabetes with neuropathy.
15. Hemochromatosis with resultant liver failure, status post remote liver transplant; on Tacrolimus.
16. Mild cognitive impairment.
17. Osteoarthritis, status post right total knee arthroplasty 2010.
18. Bladder cancer, diagnosed <5 years ago, status post TURBT, chemotherapy.
19. BPH.
20. Obesity, BMI 33.0.
21. Remote history of tobacco abuse.
Past Surgical History: Reports Other
Additional Past Surgical History:
1. Pulmonary vein isolation.
2. PCI with drug-eluting stent to circumflex.
3. PCI with stent to proximal LAD.
4. PCI with drug-eluting stent to mid RCA and OM2.
5. AAA stent.
6. Fem-fem bypass.
7. Transesophageal echocardiogram.
8. Liver transplant.
9. Cholecystectomy.
10. Appendectomy.
11. Left inguinal hernia repair.
12. Right total knee arthroplasty.
13. TURBT.
14. Multiple cystoscopies.
Social History
Tobacco: Former Smoker (He is a former 1 pack per day cigarette smoker who quit tobacco altogether in 1999.)
Alcohol: Occasional
Personal:
Living: Other (He lives with his spouse and daughter in a 2 story home. )
Family History
Family History: Not pertinent
Allergies / Home Medications
Allergy/Medication List:
Home medications:
1. Acetaminophen 1000 mg p.o. every 6 hours as needed.
2. Amiodarone 200 mg p.o. daily.
3. Eliquis 5 mg p.o. twice a day.
4. Entresto 24-26 mg p.o. twice a day.
5. Furosemide 80 mg p.o. daily.
6. Furosemide 40 mg p.o. every evening.
7. Gabapentin 400 mg p.o. three times a day.
8. Lantus 20 units subcutaneous every evening.
9. Novolin N 15 units subcutaneous twice a day.
10. Jardiance 25 mg p.o. daily.
11. Magnesium oxide 250 mg p.o. daily.
12. Mounjaro 7.5 mg subcutaneous on Sundays.
13. Nitroglycerin 0.4 mg sublingual every 5 minutes as needed (max 3 doses).
14. Rosuvastatin 20 mg p.o. daily.
15. Spironolactone 12.5 mg p.o. daily.
16. Tacrolimus 2 mg p.o. daily.
17. Tacrolimus 1 mg p.o. every evening.
18. Tamsulosin 0.4 mg p.o. twice a day.
Allergies: Oxycodone. Nexavar.
Review of Systems
-
A 12 point ROS was completed and negative except as noted: Yes
Physical Exam
Vital Signs
Blood pressure 117/69. Heart rate 74. Respirations 18. Pulse ox 98% on room air.
Height 5 feet, 9 inches, weight 101.5 kg, BMI 33.0.
Physical Exam
General: Well Developed, Well Nourished and No Apparent Distress
HEENT: NormoCephalic, Moist mucous membranes, Atraumatic and PERRLA
Respiratory: Clear
Cardiac: Irregular Rhythm
GI: Soft, Non Tender, Non Distended and Other (Obese. )
Musculoskeletal: Other (+1 non-pitting bilateral lower extremity edema. The patient ambulates with a single point cane.)
Skin: Warm and Dry
Neuro: AO x 3 (with baseline mild cognitive deficits noted. )
Laboratory Results
-
DIAGNOSTIC STUDIES as of 10/09/2024: White blood cell count 6.5. Hemoglobin 15.3. Platelet count 203,000. PT 17.5. INR 1.41. Sodium 140. Potassium 4.8. BUN 42. Creatinine 2.0. Glucose 157. Calcium 8.8. Magnesium 2.1. AST 21. ALT 20. Albumin 4.7.
Type and screen A positive.
EKG 10/09/2024: Atrial fibrillation with premature ventricular or aberrantly conducted complexes. Low voltage QRS. Cannot rule out anterior infarct, cited on or before 04/06/2024.
Impression/Plan
-
IMPRESSION/PLAN:
1. Persistent atrial fibrillation: The patient is in need of pulmonary vein isolation with Dr. Ck Keys on 11/03/2024. The benefits and risks of the procedure have been explained to the patient. The patient understands these risks and
wishes to proceed. He is aware to continue compliance with his Eliquis pre-operatively. He will hold his Mounjaro within a week of his procedure. His last dose of Jardiance will be 10/29/2024.
[2024-11-03] VITALS (14 sets, daily range): BP systolic 127–154; BP diastolic 71–81; BMI 33.2
[2024-11-03 08:19] LABS: Glucose - Point of Care 122 mg/dl (70-99)
[2024-11-03 09:46] LABS: ACT-LR - POC 382 Seconds (116-155)
[2024-11-03 09:57] LABS: Glucose - Point of Care 102 mg/dl (70-99)
[2024-11-03 10:15] LABS: ACT-LR - POC > 397 Seconds (116-155)
--- NOTE | 2024-11-03 11:00 | ITS.CL.ABL ---
Investigations Director - Ablation
Ablation
Procedure Report:
ELECTROPHYSIOLOGIC STUDY AND POSSIBLE ABLATION
DATE: November 03, 2024
Primary Care Provider: Dr Peter Coy
Primary Chief Operator Lock Tender: Dr. Devan Lara
INDICATION:
Symptomatic Atrial Fibrillation.
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 He has subsequently recurred with symptomatic persistent atrial fibrillation despite ongoing antiarrhythmic drug therapy with amiodarone and presents today for mapping and ablation.
HISTORY: See H and P.
Symptomatic AF, poorly controlled with attempted medical therapy
HAS-BLED: 2
Age
Abnormal Renal Function
CHADSVASc: 5
HFpEF
Age
DM
CAD and PAD
PRESENTING RHYTHM: AF
HISTORY: See H and P.
Symptomatic AF, poorly controlled with attempted medical therapy.
ANTIARRHYTHMIC DRUG: Amiodarone 200 mg daily
ANTICOAGULATION: Eliquis 5 mg twice daily
'TIME-OUT': called and confirmed.
SEDATION/ANESTHESIA: provided via the anesthesia department using general anesthesia.
PROCEDURE:
Ultrasound Guidance with real-time visualization of needle insertion and vessel patency performed by me for femoral venous Vascular Access.
Under real-time US guidance, the needle was advanced with negative pressure into the vein. The needle was seen entering the vessel lumen with a good return of dark red flow, the syringe was removed, non-pulsatile, dark red blood low was noted and
the wire was passed without difficulty, then the needle was removed. US confirmed the wire was in the vein, not going into an artery,
Images were taken and saved for the patient's permanent record. Imaging findings typical femoral venous anatomy. Direct visualization of needle puncture into the femoral vein was observed and recorded.
A decapolar CS catheter was placed within the CS for mapping and pacing.
The intracardiac ultrasound catheter was positioned in the RA for continuous intracardiac ultrasound imaging.
Heparin bolus and infusion to target ACT at 300 -350 seconds was administered. Transseptal puncture was performed. This entailed advancing a sheath with dilator into the superior vena cava and withdrawing both (monitoring intracardiac ultrasound,
fluoroscopy and tip pressure) with the tip oriented toward the atrial septum. The fossa ovalis was engaged (indicated by sudden displacement of the sheath tip as well as tenting of the fossa seen on intracardiac ultrasound).
The [employer] transseptal system was used. Left atrial catheter position was confirmed by echocardiographic imaging and fluoroscopy followed by RF delivery using the [employer] system resulting in successful LA access with pressure monitoring
demonstrating LA pressure waveforms (LA mean pressure 15 mm Hg). The sheath was advanced over the dilator and positioned in the left atrium.
The [employer] multipolar mapping catheter was initially positioned through the transseptal sheath for high density mapping.
Cardioversion resulted in sinus rhythm.
Geometry and voltage mapping was performed using the [employer] multipolar grid catheter. Ensite-X was utilized for three-dimensional electroanatomical mapping.
A 3-D map was created using Ens[employer] in Voxel mode. A 3-D reconstructed CT image was compared to the 3-D [employer] map to assist in anatomic evaluation, mapping and ablation.
High dense electroanatomical mapping finds that there is reconnection at the left inferior pulmonary vein towards the inferior quadrant and reconnection at the right inferior pulmonary vein towards the inferior septal quadrant. Additionally there
is very focal reconnection at the left superior pulmonary vein towards its anterior septal quadrant. The posterior wall of the left atrium is isolated however there are areas of marked fractionation and patchy voltages along the floor of the left
atrium.
The [employer] PFA catheter and system was used for cardiac ablation. Catheter positioning was guided and confirmed using both I.C.E. and fluoroscopy.
Initially the areas of reconnection were addressed with ablation and ablation successfully isolated the areas of reconnection at the left superior, left inferior and right inferior pulmonary vein
Additional energy applications/additional ablation sets targeted extra PV contributors to atrial fibrillation.
Targets were identified with electroanatomical voltage mapping finding areas of low voltage and complex fractionated electrograms. These areas can be sites for the formation of rotors which can drive and maintain atrial fibrillation. These areas are
known to be significant contributors to initiation and perpetuation of atrial fibrillation.
Targets for additional PFA ablation included:
1. Left atrial floor and this was treated with a floor line ablation of the left atrium posteriorly.
2. Once this was completed additional mapping finds areas of complex fractionated electrograms and patchy voltages at the roof of the left atrium anteriorly and this was addressed with ablation at the anterior LA, eliminating those areas as
targets
At the completion of ablation at the targeted extra PV sites, post ablation mapping finds that the targeted complex fractionated electrograms are eliminated rendering the sites no longer able to contribute to atrial fibrillation. Post ablation high
output pacing at the targeted sites demonstrate lack of capture / exit block.
Post ablation mapping additionally finds that all PVPs were eliminated at each vein demonstrating entrance block. Also pacing around the the circumference of the ostia was performed at 10 ma and 2.0 msec output to assess for exit block. This
demonstrated electrical isolation at each of the pulmonary vein ostia (LSPV, LIPV, RSPV, RIPV).
Programmed electrostimulation including burst atrial pacing as well as delivery of atrial decremental extrastimuli down to atrial ERP failed to induce any sustained arrhythmias.
I.C.E. :
Pre-Ablation Post-Ablation
LVEF: 45-50 % 45-50 %
WMA: none none
Pericardial effusion: none none
COMPLICATIONS:
none
SUMMARY:
- Mapping and ablation to isolate the PVs
- Additional AF ablation set after PVI.
1. Left atrial floor line.
2. Anterior roof LA ablation line
- 3-D Electroanatomical Mapping
- Intracardiac Ultrasound
- Ultrasound guidance for vascular access
Post ablation, I discussed today's findings and results with the patient's , Heydi.
RECOMMENDATIONS:
- Observe in monitored bed.
- Maintain oral anticoagulation.
- Continue amiodarone 200 mg daily at least for the next 3 to 6 months as we assess rhythm control.
If after 3 to 6 months he is maintaining sinus rhythm I would recommend dose reduction of amiodarone to 100 mg daily for another 6 months then, consider discontinuation
- Continue cardiovascular care with Dr. Devan Lara
Copy to:
Dr Peter Coy
Dr. Devan Lara
[2024-11-03] MEDS: ENTRESTO 24 MG/26 MG 1 TAB PO (12:30)
[2024-11-03] MEDS: PROGRAF 2 MG PO (12:30)
--- NOTE | 2024-11-03 14:40 | W.PN.UPDATE ---
Update Note
Progress Note Update
74 yo WM s/p PVI (Same day). He denies cp, sob, melvin diet, amb w/o dizziness, voiding, EKG SR 1deg AVB, R fem site c/d/i no HT, soft. He will resume Eliquis tonight. He will continue amiodarone for up to 3-6 mo. Activity restrictions reviewed. He
will f/u Dr. Lraa in 3 mo. He is for d/c home after 3p if groin stable.
== END 2024-11-03 14:58 | disposition home or self-care (01) ==
LOC: CATH 07:39
PROVIDERS: ATTENDING PHYSICIAN Internal Medicine Cardiovascular Disease; FAMILY PHYSICIAN Internal Medicine
DX: I48.19 Other persistent atrial fibrillation (principal); I13.0 Hypertensive heart and chronic kidney disease with heart failure and stage 1 through stage 4 chronic kidney disease, or unspecified chronic kidney disease; I50.32 Chronic diastolic (congestive) heart failure; N18.32 Chronic kidney disease, stage 3b; E11.22 Type 2 diabetes mellitus with diabetic chronic kidney disease; E78.5 Hyperlipidemia, unspecified; I25.10 Atherosclerotic heart disease of native coronary artery without angina pectoris; I08.1 Rheumatic disorders of both mitral and tricuspid valves; G47.33 Obstructive sleep apnea (adult) (pediatric); Z94.4 Liver transplant status; M19.90 Unspecified osteoarthritis, unspecified site; N40.0 Benign prostatic hyperplasia without lower urinary tract symptoms; E66.9 Obesity, unspecified; Z68.33 Body mass index [BMI] 33.0-33.9, adult; Z85.51 Personal history of malignant neoplasm of bladder; Z87.891 Personal history of nicotine dependence; Z95.5 Presence of coronary angioplasty implant and graft; Z79.4 Long term (current) use of insulin; Z79.01 Long term (current) use of anticoagulants; Z79.84 Long term (current) use of oral hypoglycemic drugs; Z79.85 Long-term (current) use of injectable non-insulin antidiabetic drugs
CPT/HCPCS: C1732; C1894; C1769; C1730; C1892; 82962; 85347; 93005; 93656; 93657; C1733; C1766

== ENCOUNTER 2024-12-28 05:47 | Day surgery (SDC) | payer MEDICARE, OTHER, SELFPAY ==
[2024-12-28 06:18] VITALS: BMI 31.1
[2024-12-28 06:19] VITALS: BP 121/66; BMI 31.1
[2024-12-28 06:32] LABS: Glucose - Point of Care 144 mg/dl (70-99)
[2024-12-28] MEDS: NORMOSOL-R/PLASMALYTE-A 1000 IV (06:33)
[2024-12-28 08:40] VITALS: BP 121/66; BP 133/82
[2024-12-28 08:45] VITALS: BP 114/68
[2024-12-28 08:54] LABS: Glucose - Point of Care 121 mg/dl (70-99)
[2024-12-28 09:00] VITALS: BP 122/73
[2024-12-28 09:15] VITALS: BP 122/74
[2024-12-28] MEDS: FLOMAX 0.4 MG PO (09:17)
[2024-12-28 09:30] VITALS: BP 137/74
== END 2024-12-28 10:02 | disposition home or self-care (01) ==
LOC: SDS 05:47
PROVIDERS: ATTENDING PHYSICIAN Specialist
DX: C67.9 Malignant neoplasm of bladder, unspecified (principal); N47.1 Phimosis; N35.919 Unspecified urethral stricture, male, unspecified site; N40.0 Benign prostatic hyperplasia without lower urinary tract symptoms
CPT/HCPCS: 52224; 54161; 82962; 88304

== ENCOUNTER → 2025-02-16 07:29 | Outpatient (REF) | payer MEDICARE, OTHER, SELFPAY ==
[2025-02-16 08:50] LABS: Blood Urea Nitrogen 31 mg/dl (9-20); Calcium 8.9 mg/dl (8.4-10.2); Carbon Dioxide 25 mmol/L (22-30); Chloride 104 mmol/L (98-107); Glucose 184 mg/dl (70-99); Potassium 4.1 mmol/L (3.5-5.1); Sodium 139 mmol/L (135-145); eGFR 34.16
== END ==
LOC: REG 07:29
PROVIDERS: ATTENDING PHYSICIAN Surgery Vascular Surgery; FAMILY PHYSICIAN Internal Medicine
DX: I73.9 Peripheral vascular disease, unspecified (principal); I71.40 Abdominal aortic aneurysm, without rupture, unspecified
CPT/HCPCS: 36415; 80048

== ENCOUNTER → 2025-02-19 08:01 | Outpatient (REF) | payer MEDICARE, OTHER, SELFPAY | LOC: RAD 08:01 | PROVIDERS: ATTENDING PHYSICIAN Physician Assistant; FAMILY PHYSICIAN Internal Medicine | DX: I73.9 Peripheral vascular disease, unspecified (principal); I71.40 Abdominal aortic aneurysm, without rupture, unspecified | CPT/HCPCS: 93922 ==

== ENCOUNTER 2025-03-05 07:35 | Outpatient (RCR) | payer MEDICARE, OTHER, SELFPAY ==
[2025-03-05 08:03] VITALS: BP 128/58
[2025-03-05] MEDS: SODIUM BICARBONATE 1150 MEQ IV (08:18)
== END 2025-03-06 23:59 | disposition home or self-care (01) ==
LOC: OID 07:35
PROVIDERS: ATTENDING PHYSICIAN Surgery Vascular Surgery; FAMILY PHYSICIAN Internal Medicine
DX: I73.9 Peripheral vascular disease, unspecified (principal); I71.40 Abdominal aortic aneurysm, without rupture, unspecified; Z94.4 Liver transplant status
CPT/HCPCS: 96365; 96366

== ENCOUNTER → 2025-03-08 06:54 | Outpatient (REF) | payer MEDICARE, OTHER, SELFPAY ==
[2025-03-08 08:10] LABS: ALT (SGPT) 19 U/L (0-50); AST (SGOT) 20 U/L (17-59); Albumin 4.0 g/dl (3.5-5.0); Alkaline Phosphatase 70 U/L (38-126); Blood Urea Nitrogen 36 mg/dl (9-20); Calcium 8.6 mg/dl (8.4-10.2); Carbon Dioxide 29 mmol/L (22-30); Chloride 104 mmol/L (98-107); Glucose 200 mg/dl (70-99); HDL Cholesterol 46 mg/dl; LDL Cholesterol, Calculated 34 mg/dl; Potassium 4.5 mmol/L (3.5-5.1); Sodium 140 mmol/L (135-145); Total Protein 6.6 g/dl (6.3-8.2); Very Low Density Lipoprotein 41 mg/dl (0-30); eGFR 32.22
[2025-03-08 09:12] LABS: Glycohemoglobin (HgbA1c) 7.9 % (4.0-5.6)
[2025-03-10 09:39] LABS: Tacrolimus (Prograft - FK506) 7.2 ng/mL
== END ==
LOC: REG 06:54
PROVIDERS: Internal Medicine Cardiovascular Disease; ATTENDING PHYSICIAN Internal Medicine Endocrinology, Diabetes & Metabolism; FAMILY PHYSICIAN Internal Medicine
DX: E11.9 Type 2 diabetes mellitus without complications (principal); Z94.4 Liver transplant status
CPT/HCPCS: 36415; 80053; 80061; 80197; 83036